=== PATIENT | male | born 1935 | race Asian ===

== ENCOUNTER 2017-10-11 02:39 | Emergency (ER) | payer OTHER, MEDICAID ==
[~2017-10-11] VITALS: Ht 170.2 cm; Wt 79.0 kg
[~2017-10-11 02:39] MED LIST: CLOP75 PO; GLIP5TAB11 PO; LISI-622 PO; METF500T4 PO; PRAV20TA4 PO
[2017-10-11] MEDS ORDERED: LATA2.5D15 OU (03:02)
[2017-10-11] MEDS ORDERED: ATOR40TA28 PO (03:02)
[2017-10-11] MEDS ORDERED: MONT10TA21 PO (03:02)
[2017-10-11] MEDS ORDERED: NITR0.4T50 SL (03:02)
[2017-10-11] MEDS ORDERED: NPH,100V SQ (03:02)
[2017-10-11] MEDS ORDERED: INSU100V3 SQ (03:02)
[2017-10-11] MEDS ORDERED: KDUR10 PO (03:02)
[2017-10-11] MEDS ORDERED: TEMA15CA PO (03:02)
[2017-10-11] MEDS ORDERED: COSO10OS OU (03:02)
[2017-10-11] MEDS ORDERED: FLUT16H NASAL (03:02)
[2017-10-11] MEDS ORDERED: CLOP75 PO (03:02)
[2017-10-11] MEDS ORDERED: METO25 PO (03:02)
[2017-10-11] MEDS ORDERED: ASPI81 PO (03:02)
[2017-10-11 04:21] LABS: BASOPHILS % (AUTO) 0.8 % (0.0-2.0); EOSINOPHILS % (AUTO) 2.3 % (1.0-6.0); HEMATOCRIT 44.9 % (41-53); HEMOGLOBIN 14.9 g/dL (13.5-17.5); LYMPHOCYTES # (AUTO) 0.4 K/uL (1.0-4.8); LYMPHOCYTES % (AUTO) 5.4 % (22.0-44.0); MEAN CORPUSCULAR HEMOGLOBIN 30.5 pg (26.0-34.0); MEAN CORPUSCULAR HGB CONC 33.2 G/dL (31.0-37.0); MEAN CORPUSCULAR VOLUME 92 fL (80-100); MONOCYTES # (AUTO) 0.8 K/uL (0.1-1.0); MONOCYTES % (AUTO) 11.3 % (2.0-9.0); NEUTROPHILS # (AUTO) 5.8 K/uL (1.8-7.7); NEUTROPHILS % (AUTO) 80.2 % (40.0-70.0); PLATELET COUNT (AUTO) 120 K/uL (150-450); RED CELL DISTRIBUTION WIDTH 14.5 % (11.5-14.5)
[2017-10-11 04:27] LABS: CALCIUM, TOTAL 8.4 mg/dL (8.8-10.5); CREATININE 1.29 mg/dL (0.60-1.30); POTASSIUM 4.1 mmol/L (3.5-5.1)
[2017-10-11 04:30] LABS: INR 0.9 (0.9-1.1); PROTHROMBIN TIME 9.8 SEC (9.4-11.6)
[2017-10-11 04:35] LABS: ALBUMIN 3.3 g/dL (3.4-5.0); BILIRUBIN,TOTAL 0.5 mg/dL (0.1-1.0)
[2017-10-11 05:28] LABS: APPEARANCE,URINE CLEAR (CLEAR); BILIRUBIN,URINE NEGATIVE (NEGATIVE); GLUCOSE, URINE (UA) 100 mg/dL (NEGATIVE); KETONES,URINE NEGATIVE (NEGATIVE); LEUKOCYTE ESTERASE ,URINE NEGATIVE (NEGATIVE); NITRATE,URINE NEGATIVE (NEGATIVE); OCCULT BLOOD,URINE NEGATIVE (NEGATIVE); PROTEIN,URINE POS 1+ (NEGATIVE)
[2017-10-11 05:54] LABS: BACTERIA,URINE None Seen /HPF (None Seen); RBC,URINE 0-2 /HPF (0-2); WBC,URINE None Seen /HPF (0-5)
[2017-10-11 06:01] VITALS: BP 135/61
== END 2017-10-11 06:12 | disposition home or self-care (01) ==
LOC: EMS 02:40
DX: R53.1 Weakness (principal); I10 Essential (primary) hypertension; E11.9 Type 2 diabetes mellitus without complications; E78.00 Pure hypercholesterolemia, unspecified; I25.10 Atherosclerotic heart disease of native coronary artery without angina pectoris; Z88.8 Allergy status to other drugs, medicaments and biological substances
CPT/HCPCS: 93005; 99285